=== PATIENT | female | born 1970 | race Caucasian/White ===

== ENCOUNTER 2019-11-02 05:07 | Emergency (ER) | payer SELFPAY ==
--- NOTE | 2019-11-02 05:38 | ER ---
Nurse's Notes [facility] Name: Asya Terrazas Age: 49 yrs Sex: Female : 1970 Arrival Date: 11/02/2019 Time: 05:09 Bed 5 Private MD: Diagnosis: Impacted cerumen, right ear Presentation: 11/01 05:17 Chief complaint: Patient states: Right ear pain x 2 weeks; states hearing a "pop" this lp1 morning and getting dizzy; Denies any drainage from ear, no fever. Coronavirus screen: Patient reports a cough. Patient denies shortness of breath or difficulty breathing. Patient denies measured and/or subjective temperature greater than 100.4F prior to today's visit. Patient denies travel on a cruise ship or to a country the [facility] currently lists as an affected area. Patient denies contact with known and/or suspected case of COVID-19. Ebola Screen: No symptoms or risks identified at this time. Risk Assessment: Do you want to hurt yourself or someone else? Patient reports no desire to harm self or others. Onset of symptoms was November 02, 2019. 05:17 Method Of Arrival: Ambulatory lp1 05:17 Acuity: NASIR 4 lp1 05:24 Initial Sepsis Screen: Does the patient meet any 2 criteria? No. Patient's initial jd3 sepsis screen is negative. Does the patient have a suspected source of infection? No. Patient's initial sepsis screen is negative. 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 - Social history:: Smoking status: Patient reports the use of cigarette tobacco products, smokes one-half pack cigarettes per day. - Family history:: not pertinent. - Hospitalizations: : No recent hospitalization is reported. Screenin:20 Abuse screen: Denies threats or abuse. Denies injuries from another. Nutritional lp1 screening: No deficits noted. Tuberculosis screening: No symptoms or risk factors identified. Fall Risk None identified. Assessment: 05:23 General: Appears in no apparent distress. uncomfortable, Behavior is calm, cooperative, jd3 appropriate for age. Pain: Complains of pain in right ear Quality of pain is described as sharp. Neuro: Level of Consciousness is awake, alert, obeys commands, Oriented to person, place, time, situation. Cardiovascular: Capillary refill < 3 seconds Patient's skin is warm and dry. Respiratory: Reports cough that is persistent Airway is patent Respiratory effort is even, unlabored, Respiratory pattern is regular, symmetrical, Breath sounds are clear bilaterally. Denies shortness of breath. GI: No signs and/or symptoms were reported involving the gastrointestinal system. : No signs and/or symptoms were reported regarding the genitourinary system. EENT: Tympanic membrane reddened on right ear Reports decreased hearing in right ear nasal congestion pain in right ear. Derm: Skin is intact, Skin is dry, Skin is normal, Skin temperature is warm. Musculoskeletal: Circulation, motion, and sensation intact. Range of motion: intact in all extremities. 05:45 Reassessment: Patient appears in no apparent distress at this time. Patient and/or jb4 family updated on plan of care and expected duration. Pain level reassessed. Patient is alert, oriented x 3, equal unlabored respirations, skin warm/dry/pink. Pt verbalized understanding of d/c and follow up instructions. Denies questions or concerns. Vital Signs: 05:17 Weight 90.72 kg (R); Height 5 ft. 3 in. (160.02 cm); Pain 7/10; lp1 05:22 BP 143 / 92; Pulse 100; Resp 19 S; Temp 98.1(O); Pulse Ox 100% on R/A; jd3 05:17 Body Mass Index 35.43 (90.72 kg, 160.02 cm) lp1 ED Course: 05:09 Patient arrived in ED. ds1 05:10 Odin Basurto MD is Attending Physician. rn 05:13 Zia Nuñez RN is Primary Nurse. jd3 05:19 Triage completed. lp1 05:19 Arm band placed on. lp1 05:24 Patient has correct armband on for positive identification. Bed in low position. Call jd3 light in reach. Side rails up X 1. Pulse ox on. NIBP on. 05:37 Nella Sandra MD is Referral Physician. rn 05:45 No provider procedures requiring assistance completed. Patient did not have IV access jb4 during this emergency room visit. Administered Medications: No medications were administered Outcome: 05:37 Discharge ordered by . rn 05:45 Discharged to home ambulatory. jb4 05:45 Condition: stable 05:45 Discharge instructions given to patient, Instructed on discharge instructions, follow up and referral plans. medication usage, Demonstrated understanding of instructions, follow-up care, medications, Prescriptions given X 1. 05:46 Patient left the ED. mg2 Signatures: Anna Ndiaye ds1 Odin Basurto MD MD rn Asya Sanchez RN RN lp1 Brandyn Lazo RN RN jb4 Zia Nuñez RN RN jAndrew Vinson RN RN mg2 Corrections: (The following items were deleted from the chart) 05:50 05:45 Reassessment: Patient appears in no apparent distress at this time. Patient jb4 and/or family updated on plan of care and expected duration. Pain level reassessed. Patient is alert, oriented x 3, equal unlabored respirations, skin warm/dry/pink. Pt verbalized understanding of d/c and follow up instructions. Denies questions or concerns. mg2 05:50 05:45 Discharged to home ambulatory, mg2 jb4 05:50 05:45 Condition: stable mg2 jb4 05:50 05:45 Discharge instructions given to patient, Instructed on discharge instructions, jb4 follow up and referral plans. medication usage, Demonstrated understanding of instructions, follow-up care, medications, Prescriptions given X 1, mg2 05:50 05:45 No provider procedures requiring assistance completed. mg2 jb4 05:50 05:45 Patient did not have IV access during this emergency room visit. mg2 jb4
--- NOTE | 2019-11-02 05:38 | EDPHYS ---
Physician Documentation [facility] Name: Asya Terrazas Age: 49 yrs Sex: Female : 1970 Arrival Date: 11/02/2019 Time: 05:09 Bed 5 Private MD: ED Physician Odin Basurto HPI: 11/01 05:33 This 49 yrs old Female presents to ER via Ambulatory with complaints of Ear rn Pain. 05:33 The patient presents with hearing loss, pain. The complaints affect the right ear. rn Onset: The symptoms/episode began/occurred 2 week(s) ago. Modifying factors: The symptoms are alleviated by nothing, the symptoms are aggravated by nothing. Severity of symptoms: At their worst the symptoms were mild in the emergency department the symptoms are unchanged. The patient has not experienced similar symptoms in the past. Reports has been dealing with wax build up in ear, right ear, has been using OTC treatments and not working, reports diminished hearing from that ear, heard a pop yesterday. No fever. . 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 - Social history:: Smoking status: Patient reports the use of cigarette tobacco products, smokes one-half pack cigarettes per day. - Family history:: not pertinent. - Hospitalizations: : No recent hospitalization is reported. ROS: 05:33 Constitutional: Negative for fever, chills, and weight loss, ENT: + right ear rn diminished hearing and mild pain Exam: 05:33 Constitutional: This is a well developed, well nourished patient who is awake, alert, rn and in no acute distress. Ambulatory to room without difficulty or assistance. ENT: + moderate amount of cerumen with impaction right ear. Vital Signs: 05:17 Weight 90.72 kg (R); Height 5 ft. 3 in. (160.02 cm); Pain 7/10; lp1 05:22 BP 143 / 92; Pulse 100; Resp 19 S; Temp 98.1(O); Pulse Ox 100% on R/A; jd3 05:17 Body Mass Index 35.43 (90.72 kg, 160.02 cm) lp1 MDM: 05:10 Patient medically screened. rn 05:33 Differential diagnosis: cerumen impaction. Data reviewed: vital signs, nurses notes, rn and as a result, I will discharge patient. Counseling: I had a detailed discussion with the patient and/or guardian regarding: the historical points, exam findings, and any diagnostic results supporting the discharge/admit diagnosis, the need for outpatient follow up, to return to the emergency department if symptoms worsen or persist or if there are any questions or concerns that arise at home. Special discussion: I discussed with the patient/guardian in detail that at this point there is no indication for admission to the hospital. It is understood, however, that if the symptoms persist or worsen the patient needs to return immediately for re-evaluation. Based on the history and exam findings, there is no indication for further emergent testing or inpatient evaluation. I discussed with the patient/guardian the need to see the ENT specialist for further evaluation of the symptoms. ED course: Recommend continuation of OTC treatment for cerumen removal, and ENT for definitive care. Pt also requests refill of her lisinopril as she has run out for 2 months. States takes lisinopril 20mg daily. . Administered Medications: No medications were administered Disposition: 11/02/19 05:37 Discharged to Home. Impression: Impacted cerumen, right ear. - Condition is Stable. - Discharge Instructions: Earwax Buildup, Adult. - Prescriptions for Lisinopril 20 mg Oral Tablet - take 1 tablet by ORAL route once daily; 60 tablet. - Medication Reconciliation Form, Thank You Letter, Antibiotic Education, Prescription Opioid Use, Work release form form. - Follow up: Nella Sandra MD; When: As needed; Reason: Recheck today's complaints, Re-evaluation by your physician. - Problem is an ongoing problem. - Symptoms are unchanged. Signatures: Odin Basurto MD MD rn Pena, Laura, RN RN lp1 Andrew Adams RN RN mg2 Corrections: (The following items were deleted from the chart) 05:46 05:37 11/02/2019 05:37 Discharged to Home. Impression: Impacted cerumen, right ear. mg2 Condition is Stable. Forms are Medication Reconciliation Form, Thank You Letter, Antibiotic Education, Prescription Opioid Use. Follow up: Nella Sandra; When: As needed; Reason: Recheck today's complaints, Re-evaluation by your physician. Problem is an ongoing problem. Symptoms are unchanged. rn
[2019-11-02 06:01] VITALS: BP 143/92; TEMP 98.1; O2SAT 100
== END 2019-11-02 05:46 | disposition home or self-care (01) ==
LOC: ER 05:07
DX: H61.21 Impacted cerumen, right ear (principal); K21.9 Gastro-esophageal reflux disease without esophagitis
CPT/HCPCS: 99283